=== PATIENT | male | born 1995 | race Caucasian/White ===

== ENCOUNTER 2018-01-16 23:44 | Emergency (ER) | payer OTHER ==
[~2018-01-16] VITALS: Ht 167.6 cm; Wt 68.2 kg
[~2018-01-16 23:44] MED LIST: ABSORICA40 MG PO
[2018-01-16 23:51] VITALS: TEMP 97.8
[2018-01-17 00:16] LABS: BASO % 0.3 % (0.0-2.0); EOS # 0.1 (0.0-0.7); GRAN # 5.6 (1.4-6.5); GRAN % 60.1 % (42.2-75.2); HEMATOCRIT 46.2 % (36.0-47.0); HEMOGLOBIN 16.7 g/dl (12.5-16.1); INR 1.2 (0.8-3.0); LYMPH # 2.9 (1.2-3.4); MEAN CELL VOLUME 85 fl (80.0-95.0); MEAN CORPUSCULAR HEMOGLOBIN 31 pg (26.0-32.0); MEAN CORPUSCULAR HGB CONC 36 g/dl (33.0-37.0); MEAN PLATELET VOLUME 10.5 fl (7.4-10.4); MONO # 0.7 (0.1-0.6); MONO % 7.4 % (1.7-9.3); PLATELET COUNT 238 K/mm3 (130-400); PROTHROMBIN TIME 13.9 SECONDS (9.7-12.8); RED BLOOD COUNT 5.42 M/mm3 (4.20-5.60); REDCELL DISTRIBUTION WIDTH-CV 12.3 % (11.5-14.5)
[2018-01-17 00:18] LABS: PARTIAL THROMBOPLASTIN TIME 32.2 SECONDS (26.0-37.0)
[2018-01-17 00:22] LABS: ALANINE AMINOTRANSFERASE 27 U/L (21-72); ALBUMIN 4.5 gm/dL (3.5-5.0); ALKALINE PHOSPHATASE 80 U/L (50-136); ANION GAP 12 mmol/L (7-16); AST,SGOT 22 U/L (15-37); BILIRUBIN,TOTAL 1.9 mg/dL (0.0-1.0); BLOOD UREA NITROGEN 10 mg/dL (9-20); CALCIUM 9.6 mg/dL (8.4-10.2); CARBON DIOXIDE 24 mmol/L (22-30); CHLORIDE 101 mmol/L (98-107); GLUCOSE 104 mg/dL (74-106); SODIUM 136 mmol/L (137-145); TOTAL PROTEIN 8.1 gm/dL (6.4-8.2)
[2018-01-17 00:23] LABS: ACETAMINOPHEN < 10 ug/mL (10-30); ALCOHOL(ethanol),MEDICAL < 10 mg/dL; SALICYLATE < 1.0 mg/dL
[2018-01-17 02:54] LABS: ALBUMIN 3.6 gm/dL (3.5-5.0); CALCIUM 8.9 mg/dL (8.4-10.2); CREATININE, serum 0.93 mg/dL (0.66-1.25); POTASSIUM 3.8 mmol/L (3.4-5.0); TOTAL PROTEIN 6.7 gm/dL (6.4-8.2)
[2018-01-17 03:31] LABS: ARTERIAL BLD GAS O2 SATURATION 96.3 % (92-100); ARTERIAL BLOOD GAS BASE EXCESS -6.4 (-2-2); ARTERIAL BLOOD GAS HCO3 20.6 meq/L (22-26); ARTERIAL BLOOD GAS PCO2 45.9 mmHg (35-45); ARTERIAL BLOOD GAS PO2 95.8 mmHg (80-100); ARTERIAL BLOOD GAS pH 7.27 (7.35-7.45)
[2018-01-17 05:00] VITALS: BP 97/57; PULSE 105
== END 2018-01-17 05:17 | disposition short-term general hospital (02) ==
LOC: COL.ER 23:44
PROVIDERS: Emergency Medicine
DX: T39.312A Poisoning by propionic acid derivatives, intentional self-harm, initial encounter (principal); E87.2 Acidosis; R41.82 Altered mental status, unspecified
CPT/HCPCS: J2060; J2405; J2765; J7030

== ENCOUNTER 2018-03-09 14:27 | Emergency (ER) | payer OTHER ==
[~2018-03-09] VITALS: Ht 170.2 cm; Wt 60.5 kg
[2018-03-09 14:46] VITALS: BP 126/71; TEMP 98.5
[2018-03-09] MEDS ORDERED: AMOXICILLIN 50500 MG PO (15:27)
[2018-03-09 15:35] VITALS: PULSE 86
== END 2018-03-09 15:38 | disposition home or self-care (01) ==
LOC: COL.ER 14:27
DX: K02.9 Dental caries, unspecified (principal)

== ENCOUNTER 2018-04-09 03:27 | Emergency (ER) | payer OTHER ==
[~2018-04-09] VITALS: Ht 167.6 cm; Wt 59.1 kg
[~2018-04-09 03:27] MED LIST changes: +AMOXICILLIN 50500 MG PO
[2018-04-09 03:31] VITALS: BP 147/80; TEMP 98.3
[2018-04-09] MEDS ORDERED: CLEOCIN HC150 MG/CAP PO (03:33)
[2018-04-09] MEDS ORDERED: TYLENOL W/COD1 UDTAB PO (03:34)
[2018-04-09 04:35] VITALS: PULSE 77
== END 2018-04-09 04:36 | disposition home or self-care (01) ==
LOC: COL.ER 03:27
DX: K02.9 Dental caries, unspecified (principal); R50.9 Fever, unspecified
CPT/HCPCS: J1170; J1885

== ENCOUNTER 2018-04-21 17:24 | Emergency (ER) | payer OTHER ==
[~2018-04-21] VITALS: Ht 170.2 cm; Wt 61.4 kg
[~2018-04-21 17:24] MED LIST changes: +CLEOCIN HC150 MG/CAP PO; +TYLENOL W/COD1 UDTAB PO
[2018-04-21 17:32] VITALS: BP 137/84
[2018-04-21 18:51] LABS: BASO % 0.1 % (0.0-2.0); EOS % 0.1 % (0-4.0); GRAN # 13.6 (1.4-6.5); GRAN % 82.6 % (42.2-75.2); HEMOGLOBIN 16.5 g/dl (12.5-16.1); LYMPH # 1.3 (1.2-3.4); MEAN CELL VOLUME 87 fl (80.0-95.0); MEAN CORPUSCULAR HEMOGLOBIN 30 pg (26.0-32.0); MEAN CORPUSCULAR HGB CONC 34 g/dl (33.0-37.0); MEAN PLATELET VOLUME 10.3 fl (7.4-10.4); MONO # 1.4 (0.1-0.6); MONO % 8.7 % (1.7-9.3); PLATELET COUNT 183 K/mm3 (130-400); RED BLOOD COUNT 5.51 M/mm3 (4.20-5.60); REDCELL DISTRIBUTION WIDTH-CV 12.6 % (11.5-14.5)
[2018-04-21 18:59] LABS: ALBUMIN 4.2 gm/dL (3.5-5.0); BILIRUBIN,TOTAL 0.7 mg/dL (0.0-1.0); CREATININE, serum 0.67 mg/dL (0.66-1.25); POTASSIUM 4.4 mmol/L (3.4-5.0); TOTAL PROTEIN 7.3 gm/dL (6.4-8.2)
[2018-04-21 20:05] VITALS: TEMP 100.1
[2018-04-21 20:20] VITALS: PULSE 104
== END 2018-04-21 20:36 | disposition home or self-care (01) ==
LOC: COL.ER 17:24
PROVIDERS: Family Medicine
DX: B27.90 Infectious mononucleosis, unspecified without complication (principal); E86.0 Dehydration
CPT/HCPCS: J1885; J7030; J7120

== ENCOUNTER 2018-04-23 18:44 | Emergency (ER) | payer OTHER ==
[~2018-04-23] VITALS: Ht 170.2 cm; Wt 61.4 kg
[2018-04-23 18:46] VITALS: BP 150/74
[2018-04-23] MEDS ORDERED: ZITHROMAX500 M2 PO (19:04)
[2018-04-23 20:41] VITALS: PULSE 104; TEMP 98.6
== END 2018-04-23 20:47 | disposition home or self-care (01) ==
LOC: COL.ER 18:44
DX: J02.9 Acute pharyngitis, unspecified (principal); B27.90 Infectious mononucleosis, unspecified without complication

== ENCOUNTER 2018-04-30 17:55 | Emergency (ER) | payer OTHER ==
[~2018-04-30] VITALS: Ht 170.2 cm; Wt 55.7 kg
[~2018-04-30 17:55] MED LIST changes: +ZITHROMAX500 M2 PO
[2018-04-30 18:04] VITALS: TEMP 98.7
[2018-04-30] MEDS ORDERED: AMOXICILLIN875 MG PO (18:29)
[2018-04-30] MEDS ORDERED: ZOFRAN ODT4 MG PO (18:29)
[2018-04-30] MEDS ORDERED: COLACE 100100 MG/CAP PO (18:29)
[2018-04-30] MEDS ORDERED: TYLENOL 500MG500 MG PO (18:30)
[2018-04-30] MEDS ORDERED: IBU800 M1 PO (18:30)
[2018-04-30 18:36] LABS: HEMATOCRIT 43.1 % (36.0-47.0); HEMOGLOBIN 14.6 g/dl (12.5-16.1); MEAN CELL VOLUME 87 fl (80.0-95.0); MEAN CORPUSCULAR HEMOGLOBIN 30 pg (26.0-32.0); MEAN CORPUSCULAR HGB CONC 34 g/dl (33.0-37.0); MEAN PLATELET VOLUME 9.5 fl (7.4-10.4); PLATELET COUNT 290 K/mm3 (130-400); RED BLOOD COUNT 4.95 M/mm3 (4.20-5.60); REDCELL DISTRIBUTION WIDTH-CV 12.8 % (11.5-14.5)
[2018-04-30 18:47] LABS: BAND 5 % (0-10); LYMPHOCYTE 14 % (20.0-51.0); NEUTROPHILS 76 % (42.0-75.2); PLATELET ESTIMATE NORMAL (NORMAL)
[2018-04-30 19:04] LABS: ALBUMIN 3.8 gm/dL (3.5-5.0); BILIRUBIN,TOTAL 1.2 mg/dL (0.0-1.0); CALCIUM 9.3 mg/dL (8.4-10.2); CREATININE, serum 0.76 mg/dL (0.66-1.25); POTASSIUM 4.3 mmol/L (3.4-5.0); TOTAL PROTEIN 7.2 gm/dL (6.4-8.2)
[2018-04-30 21:33] VITALS: BP 119/65; PULSE 90
== END 2018-04-30 21:44 | disposition home or self-care (01) ==
LOC: COL.ER 17:55
PROVIDERS: Emergency Medicine
DX: E86.0 Dehydration (principal); B00.2 Herpesviral gingivostomatitis and pharyngotonsillitis
CPT/HCPCS: A4216; J0696; J2405; J3010; J7030

== ENCOUNTER 2018-06-06 15:12 | Emergency (ER) | payer OTHER ==
[~2018-06-06] VITALS: Ht 172.7 cm; Wt 59.1 kg
[~2018-06-06 15:12] MED LIST changes: +AMOXICILLIN875 MG PO; +COLACE 100100 MG/CAP PO; +IBU800 M1 PO; +TYLENOL 500MG500 MG PO; +ZOFRAN ODT4 MG PO
[2018-06-06 15:25] VITALS: TEMP 98.3
[2018-06-06] MEDS ORDERED: VOLTAREN 50MG T50 MG PO (15:52)
[2018-06-06 16:34] LABS: BASO % 0.5 % (0.0-2.0); EOS # 0.1 (0.0-0.7); EOS % 0.9 % (0-4.0); GRAN # 5.4 (1.4-6.5); GRAN % 66.5 % (42.2-75.2); HEMATOCRIT 44.5 % (36.0-47.0); HEMOGLOBIN 15.5 g/dl (12.5-16.1); LYMPH # 2.2 (1.2-3.4); MEAN CELL VOLUME 88 fl (80.0-95.0); MEAN CORPUSCULAR HEMOGLOBIN 31 pg (26.0-32.0); MEAN CORPUSCULAR HGB CONC 35 g/dl (33.0-37.0); MEAN PLATELET VOLUME 10.2 fl (7.4-10.4); MONO # 0.4 (0.1-0.6); MONO % 4.9 % (1.7-9.3); PLATELET COUNT 214 K/mm3 (130-400); RED BLOOD COUNT 5.04 M/mm3 (4.20-5.60); REDCELL DISTRIBUTION WIDTH-CV 13.9 % (11.5-14.5)
[2018-06-06 16:43] LABS: ALANINE AMINOTRANSFERASE 19 U/L (21-72); ALBUMIN 4.2 gm/dL (3.5-5.0); ALKALINE PHOSPHATASE 68 U/L (50-136); ANION GAP 6 mmol/L (7-16); AST,SGOT 17 U/L (15-37); BILIRUBIN,TOTAL 0.4 mg/dL (0.0-1.0); BLOOD UREA NITROGEN 13 mg/dL (9-20); CALCIUM 9.2 mg/dL (8.4-10.2); CARBON DIOXIDE 26 mmol/L (22-30); CHLORIDE 107 mmol/L (98-107); CREATININE, serum 0.67 mg/dL (0.66-1.25); GLUCOSE 109 mg/dL (74-106); POTASSIUM 4.4 mmol/L (3.4-5.0); SODIUM 139 mmol/L (137-145); TOTAL PROTEIN 7.1 gm/dL (6.4-8.2)
[2018-06-06 16:53] LABS: ACETAMINOPHEN < 10 ug/mL (10-30); ALCOHOL(ethanol),MEDICAL < 10 mg/dL; SALICYLATE < 1.0 mg/dL
[2018-06-06 16:54] LABS: TRICYCLIC ANTIDEPRESS URINE NEGATIVE
[2018-06-06 21:38] VITALS: BP 133/78; PULSE 99
== END 2018-06-06 21:42 | disposition home or self-care (01) ==
LOC: COL.ER 15:12
PROVIDERS: Nurse Practitioner
DX: R45.851 Suicidal ideations (principal); F43.20 Adjustment disorder, unspecified; F15.10 Other stimulant abuse, uncomplicated

== ENCOUNTER 2018-07-23 17:50 | Emergency (ER) | payer OTHER ==
[~2018-07-23] VITALS: Ht 167.6 cm; Wt 61.4 kg
[~2018-07-23 17:50] MED LIST changes: +VOLTAREN 50MG T50 MG PO
[2018-07-23 17:58] VITALS: TEMP 98.7
[2018-07-23 19:00] LABS: BASO % 0.3 % (0.0-2.0); EOS % 0.4 % (0-4.0); GRAN # 6.9 (1.4-6.5); HEMATOCRIT 45.9 % (36.0-47.0); LYMPH # 3.2 (1.2-3.4); LYMPH % 29.8 % (20.0-51.0); MEAN CELL VOLUME 90 fl (80.0-95.0); MEAN CORPUSCULAR HEMOGLOBIN 31 pg (26.0-32.0); MEAN CORPUSCULAR HGB CONC 35 g/dl (33.0-37.0); MEAN PLATELET VOLUME 9.5 fl (7.4-10.4); MONO # 0.5 (0.1-0.6); MONO % 4.2 % (1.7-9.3); PLATELET COUNT 226 K/mm3 (130-400); RED BLOOD COUNT 5.12 M/mm3 (4.20-5.60); REDCELL DISTRIBUTION WIDTH-CV 12.1 % (11.5-14.5)
[2018-07-23 19:11] LABS: ALANINE AMINOTRANSFERASE 16 U/L (21-72); ALBUMIN 4.4 gm/dL (3.5-5.0); ALKALINE PHOSPHATASE 54 U/L (50-136); ANION GAP 8 mmol/L (7-16); AST,SGOT 19 U/L (15-37); BILIRUBIN,TOTAL 0.5 mg/dL (0.0-1.0); BLOOD UREA NITROGEN 18 mg/dL (9-20); CALCIUM 9.4 mg/dL (8.4-10.2); CARBON DIOXIDE 28 mmol/L (22-30); CHLORIDE 104 mmol/L (98-107); CREATININE, serum 0.75 (0.66-1.25); GLUCOSE 91 mg/dL (74-106); POTASSIUM 4.2 mmol/L (3.4-5.0); SALICYLATE 2.7 mg/dL; SODIUM 140 mmol/L (137-145); TOTAL PROTEIN 7.2 gm/dL (6.4-8.2)
[2018-07-23 19:13] LABS: ACETAMINOPHEN < 10 ug/mL (10-30); ALCOHOL(ethanol),MEDICAL < 10 mg/dL
[2018-07-23 20:21] LABS: COLLECTION METHOD CLEAN CATCH
[2018-07-23 20:32] LABS: MUCOUS Present /lpf; PH 5 (5-8); SQUAMOUS EPITHELIAL None Seen /hpf; URINE APPEARANCE Clear; URINE BACTERIA Rare /hpf; URINE BILIRUBIN Negative (NEGATIVE); URINE BLOOD Negative (NEGATIVE); URINE COLOR Yellow; URINE GLUCOSE Negative (NEGATIVE); URINE KETONE Negative (NEGATIVE); URINE LEUKOCYTE ESTERASE Negative (NEGATIVE); URINE NITRATE Negative (NEGATIVE); URINE PROTEIN(semi-quant) Negative (NEGATIVE); URINE RBC 0-2 /hpf; URINE UROBILINOGEN Negative (NEGATIVE)
[2018-07-23 20:35] LABS: TRICYCLIC ANTIDEPRESS URINE NEGATIVE
[2018-07-23 21:45] VITALS: BP 137/76; PULSE 100
--- NOTE | 2018-07-23 22:08 | NUR ---
PT IS ASLEEP- FRIEND AT BEDSIDE EATING PIZZA-
[2018-07-24 09:20] VITALS: BP 150/90; PULSE 62
== END 2018-07-24 09:20 ==
LOC: COL.ER 17:50
PROVIDERS: Emergency Medicine
DX: T39.012A Poisoning by aspirin, intentional self-harm, initial encounter (principal); T42.6X2A Poisoning by other antiepileptic and sedative-hypnotic drugs, intentional self-harm, initial encounter; T36.0X2A Poisoning by penicillins, intentional self-harm, initial encounter; F15.10 Other stimulant abuse, uncomplicated; Z91.5 Personal history of self-harm

== ENCOUNTER → 2019-11-19 | Outpatient (CLI) | payer BC | LOC: ZCOL.LAB 16:16 | DX: Z20.828 Contact with and (suspected) exposure to other viral communicable diseases (principal); J02.9 Acute pharyngitis, unspecified ==